=== PATIENT | female | born 1950 | race Hispanic/Latino ===

== ENCOUNTER → 2018-04-21 | Outpatient (CLI) | payer MEDICARE, OTHER | END | disposition home or self-care (01) | LOC: RAH 09:49 | PROVIDERS: ATTEND Obstetrics & Gynecology | DX: Z12.31 Encounter for screening mammogram for malignant neoplasm of breast (principal) | CPT/HCPCS: 77067 ==

== ENCOUNTER → 2018-09-19 | Outpatient (CLI) | payer OTHER | END | disposition home or self-care (01) | LOC: RAH 14:36 | PROVIDERS: ATTEND Obstetrics & Gynecology | DX: Z13.6 Encounter for screening for cardiovascular disorders (principal) | CPT/HCPCS: 75571 ==

== ENCOUNTER → 2018-11-10 | Outpatient (CLI) | payer MEDICARE | END | disposition home or self-care (01) | LOC: SHCH 11:30 | PROVIDERS: ATTEND Internal Medicine Cardiovascular Disease | DX: I65.23 Occlusion and stenosis of bilateral carotid arteries (principal); I73.9 Peripheral vascular disease, unspecified | CPT/HCPCS: 93880; 93925 ==

== ENCOUNTER 2019-03-25 07:29 | Day surgery (SDC) | payer MEDICARE ==
[~2019-03-25] VITALS: Ht 167.6 cm; Wt 78.5 kg
[~2019-03-25 07:29] MED LIST: SODIUM CHLORIDE 0.9% 1000ML 1,000 ML IV ONE
[2019-03-25] MEDS ORDERED: PROPOFOL 1000 MG/100 ML 100 ML IV ONE (11:13)
[2019-03-25 11:37] VITALS: BP 113/77
[2019-03-25 11:42] VITALS: BP 115/78
[2019-03-25 11:47] VITALS: BP 122/78
[2019-03-25 11:52] VITALS: BP 120/83
[2019-03-25 11:57] VITALS: BP 119/75
== END 2019-03-25 12:10 | disposition home or self-care (01) ==
LOC: DAH 07:29
PROVIDERS: ATTEND Internal Medicine Gastroenterology
DX: Z12.11 Encounter for screening for malignant neoplasm of colon (principal); K62.1 Rectal polyp; K29.80 Duodenitis without bleeding; K29.50 Unspecified chronic gastritis without bleeding; K44.9 Diaphragmatic hernia without obstruction or gangrene; K31.89 Other diseases of stomach and duodenum; K29.00 Acute gastritis without bleeding; K57.30 Diverticulosis of large intestine without perforation or abscess without bleeding; R13.10 Dysphagia, unspecified; Z80.0 Family history of malignant neoplasm of digestive organs; Z90.710 Acquired absence of both cervix and uterus; Z88.5 Allergy status to narcotic agent; Z88.1 Allergy status to other antibiotic agents
CPT/HCPCS: 43239; 45380; 88305; A4606; J2704; J7030

== ENCOUNTER → 2019-06-08 | Outpatient (CLI) | payer MEDICARE | END | disposition home or self-care (01) | LOC: OIH 13:33 | PROVIDERS: ATTEND Nurse Practitioner Adult Health | DX: R06.02 Shortness of breath (principal) | CPT/HCPCS: 71046 ==

== ENCOUNTER → 2019-08-17 | Outpatient (CLI) | payer MEDICARE | END | disposition home or self-care (01) | LOC: SHCH 09:00 | PROVIDERS: ATTEND Internal Medicine Cardiovascular Disease | DX: R00.2 Palpitations (principal) | CPT/HCPCS: 93306; 93356 ==

== ENCOUNTER → 2020-11-25 | Outpatient (CLI) | payer MEDICARE | END | disposition home or self-care (01) | LOC: RAH 10:02 | PROVIDERS: ATTEND Obstetrics & Gynecology | DX: Z12.31 Encounter for screening mammogram for malignant neoplasm of breast (principal); Z00.01 Encounter for general adult medical examination with abnormal findings | CPT/HCPCS: 77067 ==

== ENCOUNTER → 2021-11-27 | Outpatient (CLI) | payer MEDICARE | END | disposition home or self-care (01) | LOC: RAH 11:15 | PROVIDERS: ATTEND Obstetrics & Gynecology | DX: Z12.31 Encounter for screening mammogram for malignant neoplasm of breast (principal) | CPT/HCPCS: 77067 ==

== ENCOUNTER → 2021-12-28 | Outpatient (CLI) | payer MEDICARE | END | disposition home or self-care (01) | LOC: RAH 16:33 | PROVIDERS: ATTEND Internal Medicine | DX: T14.90XA Injury, unspecified, initial encounter (principal); X58.XXXA Exposure to other specified factors, initial encounter; Y93.89 Activity, other specified; Y92.89 Other specified places as the place of occurrence of the external cause; Y99.8 Other external cause status ==

== ENCOUNTER → 2022-08-17 | Outpatient (CLI) | payer MEDICARE | END | disposition home or self-care (01) | LOC: RAH 07:45 | PROVIDERS: ATTEND Internal Medicine | DX: R10.9 Unspecified abdominal pain (principal); M62.838 Other muscle spasm; M79.662 Pain in left lower leg; M79.661 Pain in right lower leg | CPT/HCPCS: 93925; 93970 ==

== ENCOUNTER → 2023-06-11 | Outpatient (CLI) | payer MEDICARE | END | disposition home or self-care (01) | LOC: RAH 12:17 | PROVIDERS: ATTEND Internal Medicine | DX: S80.212A Abrasion, left knee, initial encounter (principal); X58.XXXA Exposure to other specified factors, initial encounter; Y93.89 Activity, other specified; Y92.89 Other specified places as the place of occurrence of the external cause; Y99.8 Other external cause status | CPT/HCPCS: 73560 ==

== ENCOUNTER → 2023-12-03 | Outpatient (CLI) | payer MEDICARE | END | disposition home or self-care (01) | LOC: RAH 15:34 | PROVIDERS: ATTEND Obstetrics & Gynecology | DX: Z12.31 Encounter for screening mammogram for malignant neoplasm of breast (principal); R92.333 Mammographic heterogeneous density, bilateral breasts | CPT/HCPCS: 77063; 77067 ==

== ENCOUNTER → 2024-04-02 | Outpatient (CLI) | payer MEDICARE | END | disposition home or self-care (01) | LOC: RAH 09:25 | PROVIDERS: ATTEND Student in an Organized Health Care Education/Training Program | DX: M17.12 Unilateral primary osteoarthritis, left knee (principal); M25.762 Osteophyte, left knee; M23.92 Unspecified internal derangement of left knee | CPT/HCPCS: 73721 ==

== ENCOUNTER 2024-04-29 17:06 | Emergency (ER) | payer MEDICARE ==
[~2024-04-29] VITALS: Ht 167.6 cm; Wt 68.0 kg
[2024-04-29] MEDS ORDERED: PRED20TA3 PO (20:37)
[2024-04-29] MEDS ORDERED: ONDA-243 PO (20:37)
[2024-04-29] MEDS ORDERED: OXYC-38 PO (20:37)
[2024-04-29] MEDS: Solu-medROL 125MG VIAL IM ONE (21:00)
[2024-04-29] MEDS: ketOROlac 15MG/ML VIAL (15MG/ML) IM ONE (21:01)
[2024-04-29 21:22] VITALS: BP 127/56; PULSE 82; RESP 18; TEMP 98; O2SAT 99
== END 2024-04-29 21:20 | disposition home or self-care (01) ==
LOC: EDH 17:06
DX: I83.93 Asymptomatic varicose veins of bilateral lower extremities (principal); I82.812 Embolism and thrombosis of superficial veins of left lower extremity; Z88.0 Allergy status to penicillin; Z88.5 Allergy status to narcotic agent; Z88.8 Allergy status to other drugs, medicaments and biological substances; Z91.041 Radiographic dye allergy status; Z98.890 Other specified postprocedural states
CPT/HCPCS: 99285; 93971; 96372 ×2; J2919; J1885

== ENCOUNTER → 2024-08-20 | Outpatient (CLI) | payer MEDICARE ==
[~2024-08-20] MED LIST changes: +ONDA-243 PO; +OXYC-38 PO; +PRED20TA3 PO; -SODIUM CHLORIDE 0.9% 1000ML 1,000 ML IV ONE
--- NOTE | 2024-08-20 12:25 | HMCIMG ---
Exam Type: US RENAL SONOGRAM Clinical Information: CYST OF KIDNEY,UNSPECIFIED Comparison: None Findings: Examination shows normal renal size and echogenicity bilaterally. Preserved cortical thickness and corticomedullary junction region is seen. No hydronephrosis or calculi are seen. No renal masses are seen. There is no evidence of perinephric fluid on either side. No evidence of significant ureteral dilatation is seen. The right kidney measures 9.6 x 4.1 cm. The left kidney measures 9.2 x 4.1 cm. Simple cyst left kidney 2.7 cm. The urinary bladder is normal. No bladder masses, stones, or wall thickening is seen. IMPRESSION: Normal renal anatomy bilaterally.
--- NOTE | 2024-08-20 12:42 | HMCIMG ---
THYROID ULTRASOUND Findings: The examination shows normal thyroid lobes. No thyroid masses are seen. There are no nodules. Vascularity is unremarkable. The right lobe measures 4.8 x 1.6 x 1.4 cm. The left lobe measures 3.4 x 1.2 x 1.4 cm. The isthmus measures 2 mm. No fluid collections are seen. IMPRESSION: Normal exam.
== END | disposition home or self-care (01) ==
LOC: RAH 10:36
PROVIDERS: ATTEND Internal Medicine
DX: N28.1 Cyst of kidney, acquired (principal); E07.9 Disorder of thyroid, unspecified
CPT/HCPCS: 76536; 76770

== ENCOUNTER → 2024-11-26 | Outpatient (CLI) | payer MEDICARE ==
--- NOTE | 2024-11-26 10:57 | HMCIMG ---
BONE DENSITOMETRY: HISTORY: Asymptomatic menopausal state Comparison: none FINDINGS: BMD measured at AP spine L1-L4 is 0.669 g/cm2 with a T-score of -3.4 This patient is considered osteoporotic according to WHO criteria. Fracture risk is high. BMD measured at Left Femoral Neck is 0.473 g/cm2 with a T-score of -3.4 This patient is considered osteoporotic according to WHO criteria. Fracture risk is high. BMD measured at Left Femoral Total is 0.618 g/cm2 with a T-score of -2.6 This patient is considered osteoporotic according to WHO criteria. Fracture risk is high. IMPRESSION: Osteoporosis. High risk for atraumatic fractures. Treatment and follow-up recommended.
== END | disposition home or self-care (01) ==
LOC: RAH 09:49
PROVIDERS: ATTEND Internal Medicine
DX: M81.0 Age-related osteoporosis without current pathological fracture (principal); Z78.0 Asymptomatic menopausal state
CPT/HCPCS: 77080

== ENCOUNTER → 2025-05-26 | Outpatient (CLI) | payer MEDICARE ==
--- NOTE | 2025-05-27 10:26 | HMCIMG ---
DIGITAL BILATERAL SCREENING MAMMOGRAM WITH TOMOSYNTHESIS Technique: The digital mammographic examination of both breasts in craniocaudal and mediolateral oblique views along with CAD was obtained. Tomosynthesis of both breasts was obtained. History: This is a 74 years year-old female 0, para 0 Ab 0 for 3D screening mammogram. Patient has no family history of breast cancer. Patient has no complaint Reference:Prior mammogram from 12/03/2023, 11/28/2022, 11/27/2021, 11/25/2020 are available for comparison.. Breast composition: Breast composition C: The breasts are heterogeneously dense, which may obscure small masses. Finding: The digital mammographic examination of both breasts in craniocaudal and mediolateral oblique view along with CAD demonstrates both breasts to be moderately heterogeneously dense due to fibroglandular stromal elements. There is a dystrophic macrocalcification is seen in the right breast which is unchanged from prior study.. There is no evidence of any dendritic mass, cluster microcalcification or architectural distortion. The Tomosynthesis demonstrates no lesion seen. The retromammary fat appears to be normal. IMPRESSION: Due to heterogeneously dense breasts. I would recommend a baseline bilateral breast sonogram.. FINAL ASSESSMENT: ACR: BI-RAD -0. Incomplete: need additional imaging evaluation. NOTE: IF A WORK-UP OF THIS PATIENT LEADS TO A BIOPSY, PLEASE FORWARD A COPY OF THE PATHOLOGY REPORT TO OUR OFFICE REQUIRED BY [employer] APRIL 14, 1994. A NEGATIVE MAMMOGRAM SHOULD NOT PRECLUDE BIOPSY OF A CLINICALLY PALPABLE SUSPICIOUS MASS, 10% OF BREAST CANCERS ARE MAMMOGRAPHICALLY OCCULT. THIS MAMMOGRAPHY FACILITY IS FULLY ACCREDITED BY THE FOOD AND DRUG ADMINISTRATION (FDA). THANK YOU FOR THIS REFERRAL.
== END | disposition home or self-care (01) ==
LOC: RAH 09:16
PROVIDERS: ATTEND Internal Medicine
DX: Z12.31 Encounter for screening mammogram for malignant neoplasm of breast (principal); N60.11 Diffuse cystic mastopathy of right breast; N60.12 Diffuse cystic mastopathy of left breast; R92.333 Mammographic heterogeneous density, bilateral breasts
CPT/HCPCS: 77063; 77067